=== PATIENT | male | born 1945 | race Caucasian/White ===

== ENCOUNTER 2019-12-24 00:38 | Inpatient (IN) | payer OTHER, BC ==
[2019-12-24] VITALS (86 sets, daily range): BP systolic 103–163; BP diastolic 52–131
[~2019-12-24] VITALS: Ht 167.6 cm; Wt 105.5 kg
[~2019-12-24 00:38] MED LIST: ALLOPURINOL 10100 M1 PO; ALLOPURINOL 30300 M2 PO; ASA5UEC PO; ATORVASTATIN CA40 MG PO; COLACE100 MG PO; COUMADIN 2 MG TA2 M1 PO; COUMADIN 3 MG TA3 MG PO; COUMADIN 5 MG TA5 M1 PO; EFFIENT10 MG PO; ENOXAPARIN100 MG/1 M SQ; ENOXAPARIN30 MG/0.3 SQ; HYDROCODON-ACE1 EAC4 PO; INDOMETHACIN 5050 M1 PO; INDOMETHACIN 5050 MG PO; IPRATROPIUM BROMIDE INH; LASIX 40 MG TAB40 M1 PO; LEVAQUIN 250 M250 MG PO; LISINOPRIL40 MG PO; LOPRESSOR50 PO; NEURONTIN600 MG PO; OMEPRAZOLE40 MG PO; PAXIL10 MG; PREDNISONE 5 MG5 M1; PULMICORT FLE180 MCG INH; TOPROL XL25 MG PO
[2019-12-24 02:59] LABS: BE(vivo) -3.7 mmol/L (-2 to +3); HCO3 22.2 mmol/L (22.0-26.0); PCO2 43.3 mmHg (35.0-45.0); PO2 69.2 mmHg (80.0-100.0); sO2 92.7 % (92.0-98.0)
[2019-12-24 03:02] LABS: pH 7.327 (7.360-7.450)
[2019-12-24 03:54] LABS: HEMATOCRIT 39.3 % (42.0-52.0); HEMOGLOBIN 12.7 gm/dL (14.0-18.0); MCH 33.1 pg (26.0-34.0); MCHC 32.3 g/dL (28.0-37.0); MCV 102.4 fL (80.0-100.0); RBC 3.84 mil/uL (4.50-6.00); RDW 14.7 % (10.5-14.5); WBC 12.6 thou/uL (4.0-11.0)
[2019-12-24] MEDS ORDERED: FUROSEMIDE 40 M40 MG PO (04:14)
[2019-12-24 04:21] LABS: CHOLESTEROL 122 mg/dL (<200); HDL CHOLESTEROL 47 mg/dL (>40); LDL CHOLESTEROL 66 mg/dL (<100); TC:HDL 2.6 Ratio (Not establshd); TRIGLYCERIDE 47 mg/dL (<150); VLDL 9 mg/dL (<40)
[2019-12-24 04:23] LABS: CALCIUM 8.5 mg/dL (8.5-10.1); CREATININE 2.4 mg/dL (0.7-1.3); MAGNESIUM 1.9 mg/dL (1.8-2.4); POTASSIUM 4.7 mmol/L (3.5-5.1); TROPONIN-I 0.19 ng/mL (<0.06)
[2019-12-24 04:24] LABS: SERUM ASSESSMENT Clear
--- NOTE | 2019-12-24 05:19 | NUR ---
Pt arrived to the ICU in room 241 at 0330. This RN assumed care. Pt came in on 15 L nonrebreather, and tachypneic. Pt is hard of hearing and hard to communicate with. Patient currently has vancomycin and normal saline running. Erika DISABILITY ATTORNEY at bedside to assess patient. This RN also called to consult Dr. Sims and . I talked with Dr. Pretty who was insulation mechanic and no new orders received. Dr. Sims to round on patient tomorrow and gave orders for Bipap, which patient did not tolerate. Pt complaining of pain "in his stump" and needing water to quench thirst. Pt maintaining saturation and normal respiratory rate.
--- NOTE | 2019-12-24 11:54 | EKG ---
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 ABARCA : 1945 Requested By: Neno Pretty Order Number: [id number] MD: Neno Pretty Measurements Intervals [place] Rate: 82 P: 70 NJ: 175 QRS: -43 QRSD: 118 T: 104 QT: 358 QTc: 418 Interpretive Statements Sinus rhythm Leftward axis Nonspecific ST segment abnormality Compared to ECG 02/28/2015 08:21:34 No significant change was found Electronically Signed On 12-24-2019 11:53:47 CDT by Neno Pretty [email or web address] <ELECTRONICALLY SIGNED> By: Neno Pretty MD, [facility] 12/24/19 [id number] Neno Pretty MD, [facility] /EPI
--- NOTE | 2019-12-24 13:31 | 2DMMODE ---
[facility] [address] [place] [address] 2 D/M-MODE ECHOCARDIOGRAM Name: LEON WILL Room #: 241-P ADM IN M.R.#: [id number] Admission: 12/24/19 Attend Phys: Rosario Tyler MD Discharge: Date of : 41 Report #: [id number] THIS REPORT FOR: cc: Guillermo De Luna,Guillermo Puente,Neno More MD [facility] ~ APPROVED REPORT Study performed: 12/24/2019 09:50:37 EXAM: Comprehensive 2D, Doppler, and color-flow Echocardiogram Patient Location: Bedside Room #: 241 Status: on-call BSA: 2.02 HR: 84 bpm BP: 136/90 mmHg Rhythm: NSR Other Information Study Quality: Adequate Risk Factors: Cardiac Risk Factors: HTN, Hyperlipidemia, Smoking Indications COPD Sepsis Dyspnea CAD Elevated Troponin Chest Pain 2D Dimensions IVSd: 11.62 (7-11mm) LVOT Diam: 25.00 (18-24mm) LVDd: 40.61 mm PWd: 11.81 (7-11mm) Ascending Ao: 41.35 (22-36mm) LVDs: 30.70 (25-40mm) Aortic Root: 37.87 mm LV Single Plane 4CH: 51.62 % LV Single Plane 2CH: 51.50 % Biplane EF: 54.2 % [facility] [place] [place] [address] 2 D/M-MODE ECHOCARDIOGRAM Name: LEON WILL Room #: 241-P ADM IN M.R.#: [id number] Admission: 12/24/19 Attend Phys: Avery Bruno Discharge: Date of : 41 Report #: [id number] Volumes Left Atrial Volume (Systole) Single Plane 4CH: 83.54 mL Single Plane 2CH: 90.23 mL LA ESV Index: 53.00 mL/m2 Aortic Valve AoV Peak Jj.: 1.41 m/s AO Peak Gr.: 7.95 mmHg LVOT Max P.64 mmHg LVOT Max V: 1.08 m/s WINNIE Vmax: 3.79 cm2 Mitral Valve E/A Ratio: 0.7 MV Decel. Time: 192.72 ms MV E Max Jj.: 0.80 m/s MV A Jj.: 1.11 m/s MV PHT: 55.89 ms IVRT: 83.04 ms Pulmonary Valve PV Peak Jj.: 0.99 m/s PV Peak Gr.: 3.89 mmHg Tricuspid Valve TR Peak Jj.: 4.05 m/s RAP Estimate: 7.00 mmHg TR Peak Gr.: 65.72 mmHg PA Pressure: 73.00 mmHg Left Ventricle The left ventricle is normal size. There is normal LV segmental wall motion. Mild concentric left ventricular hypertrophy. The left ventricular systolic function is normal. The left ventricular ejection fraction is within the normal range. LVEF is 55-60%. Mild diastolic dysfunction is present (impaired relaxation pattern). Right Ventricle Right ventricle is dilated. Right ventricle is hypokinetic. Atria Left atrium is mildly dilated. Right atrium is severely dilated. Aortic Valve The aortic valve is normal in structure. No aortic regurgitation is present. There is no aortic valvular stenosis. [facility] [place] [place] [address] 2 D/M-MODE ECHOCARDIOGRAM Name: NIURKA WILLMaria Del Carmen Lyles Room #: 241-P [facility] IN ..#: [id number] Admission: 12/24/19 Attend Phys: Avery Bruno Discharge: Date of : 41 Report #: [id number] Mitral Valve Mild mitral annular calcification Trace mitral regurgitation. No evidence of mitral valve stenosis. Tricuspid Valve The tricuspid valve is normal in structure. Moderate tricuspid regurgitation. Pulmonary artery pressure is 70 mmHg. Pulmonic Valve The pulmonary valve is normal in structure. Trace pulmonic regurgitation. Great Vessels The aortic root is normal in size. The ascending aorta is mildly dilated (4.1cm) IVC is normal in size and collapses >50% with inspiration. Pericardium There is no pericardial effusion. <Conclusion> The left ventricular systolic function is normal. There is normal LV segmental wall motion. LVEF is 55-60%. Mild diastolic dysfunction Right ventricle and atrium are dilated. RV is hypokinetic. The aortic valve is normal in structure. No aortic regurgitation or stenosis Mild mitral annular calcification. Trace mitral insufficiency Moderate tricuspid regurgitation. Pulmonary artery pressure of 70 mmHg. The ascending aorta is mildly dilated (4.1cm) There is no pericardial effusion. <ELECTRONICALLY SIGNED> By: Neno Pretty MD, [facility] 12/24/19 133 30 30 Neno Pretty MD, FACC /INF
[2019-12-24 14:14] LABS: HEMATOCRIT 39.6 % (42.0-52.0); HEMOGLOBIN 12.6 gm/dL (14.0-18.0); MCH 32.9 pg (26.0-34.0); MCHC 31.7 g/dL (28.0-37.0); MCV 103.7 fL (80.0-100.0); RBC 3.82 mil/uL (4.50-6.00); RDW 15.1 % (10.5-14.5); WBC 11.6 thou/uL (4.0-11.0)
[2019-12-24 14:27] LABS: PROTIME 10.7 Seconds (9.3-11.4)
--- NOTE | 2019-12-24 17:31 | NUR ---
ASSESSMENTS AND INTERVENTIONS DOCCUMENTED. PATIENT ALERT BUT [place]. PATIENT FOLLOWING COMMANDS BUT STILL DROWSY. CALLING, UPDATE GIVEN ABOUT PATIENT STATUS. DR. GRUBBS ROUNDING, PATIENT STARTED ON RESP THERAPY TREATMENTS. ORTHO CALLED, DR. GRUBBS WANTING TO INTIATE HEPARIN GTT. ORTHO STATES PATIENT IS NOT A SURGICAL CANDIDATE AT THIS TIME. RN TO INTIATE HEPARIN GTT AFTER LABS ARE DRAWN.
[2019-12-25] VITALS (48 sets, daily range): BP systolic 106–146; BP diastolic 53–97
[2019-12-25 01:05] LABS: GLYCOHEMOGLOBIN (HGB A1C) 5.1 % (4.8-5.6)
[2019-12-25 01:10] LABS: HEMATOCRIT 36.5 % (42.0-52.0); HEMOGLOBIN 11.7 gm/dL (14.0-18.0); MCH 33.1 pg (26.0-34.0); MCV 103.4 fL (80.0-100.0); RBC 3.53 mil/uL (4.50-6.00); RDW 15.3 % (10.5-14.5)
[2019-12-25 01:15] LABS: CALCIUM 8.6 mg/dL (8.5-10.1); POTASSIUM 4.7 mmol/L (3.5-5.1)
--- NOTE | 2019-12-25 07:51 | NUR ---
REPORT RECEIVED. PATIENT IS A/O. DENIES SOA, N/V. DENIES PAIN. AFEBRIL. VSS. ON HEPARIN GTT. TITRATED ORDERED. COLVIN IN PLACE WITH GOOD U/O. REMAINS ON OPTIFLOW WITH GOOD SAT. FAMILY UDATED. DENIES NEEDS. REPORT GIVEN TO ONCOMING RN
--- NOTE | 2019-12-25 12:04 | NUR ---
DR. BUSCH ROUNDED ON PATIENT, NO PLAN FOR ORTHO SURGERY AT THIS TIME. APPT RE-DRAW DONE AT 0808, THERAPEUTIC, NO CHANGE MADE TO GTT RATE. RE-DRAW AT 1400. PT ALERT AND ORIENTED. VSS. TOLERATING DIET WELL. VOICES NO NEEDS OR CONCERNS AT THIS TIME. DENIES PAIN UNLESS MOVED IN BED.
[2019-12-26] VITALS (35 sets, daily range): BP systolic 106–184; BP diastolic 49–106
--- NOTE | 2019-12-26 03:12 | NUR ---
ASSUMED PT CARE AT 1900. VSS. PT A&OX4. ON HEPARIN DRIP. PT GETS OCASSIONALLY BRADYCARDIC LOWEST HR BEING 32 WITH SLEEP HOWEVER PT REMAINS ASYMPTOMATIC. PT IS STABLE. NO COMPLAINTS. OTHER ASSESSMENTS ARE CHARTED, WILL CONTINUE TO MONITOR
[2019-12-26 05:05] LABS: HEMATOCRIT 32.2 % (42.0-52.0); HEMOGLOBIN 10.3 gm/dL (14.0-18.0); MCH 33.1 pg (26.0-34.0); MCV 103.3 fL (80.0-100.0); RBC 3.12 mil/uL (4.50-6.00); RDW 14.8 % (10.5-14.5); WBC 7.6 thou/uL (4.0-11.0)
[2019-12-26 05:06] LABS: CALCIUM 8.5 mg/dL (8.5-10.1); CREATININE 1.9 mg/dL (0.7-1.3)
--- NOTE | 2019-12-26 11:33 | NUR ---
PT HAS ASYMPTOMATIC BRADYCARDIA, CARDIOLOGY WAS CONSULTED AND EVALUATED THE PT. HOSPITALIST ORDERED ATROPINE AND CARDIOLOGY GAVE VERBAL ORDER NOT TO GIVE ATROPINE. NO ORDERS GIVEN BY CARDIOLOGY.
[2019-12-27] VITALS (22 sets, daily range): BP systolic 120–208; BP diastolic 53–100
[2019-12-27 04:07] LABS: BE(vivo) -5.5 mmol/L (-2 to +3); HCO3 20.2 mmol/L (22.0-26.0); PCO2 40.2 mmHg (35.0-45.0); PO2 71.5 mmHg (80.0-100.0); sO2 93.2 % (92.0-98.0)
[2019-12-27 04:08] LABS: pH 7.319 (7.360-7.450)
[2019-12-27 04:46] LABS: ABSOLUTE NEUTROPHILS 4.2 thou/uL (1.4-8.2); BASOPHILS 0.1 % (0.0-2.0); HEMATOCRIT 32.3 % (42.0-52.0); HEMOGLOBIN 10.4 gm/dL (14.0-18.0); LYMPHOCYTES 7.8 % (24.0-44.0); MCH 32.8 pg (26.0-34.0); MCHC 32.2 g/dL (28.0-37.0); MCV 101.9 fL (80.0-100.0); MONOCYTES 2.8 % (1.0-8.0); PLATELET COUNT 111 thou/uL (150-400); POLYS 89.3 % (36.0-66.0); RBC 3.17 mil/uL (4.50-6.00); RDW 14.3 % (10.5-14.5)
[2019-12-27 04:59] LABS: ALBUMIN 2.2 g/dL (3.4-5.0); CALCIUM 8.5 mg/dL (8.5-10.1); CREATININE 2.1 mg/dL (0.7-1.3); POTASSIUM 4.5 mmol/L (3.5-5.1); TOTAL BILIRUBIN 0.3 mg/dL (0.2-1.0)
--- NOTE | 2019-12-27 11:00 | NUR ---
ASSESSMENT: CM REVIEWED CHART. PT CAME TO [facility] FROM [facility] DUE TO CHEST PAIN AND INCREASING NEED OF OXYGEN. PT HAS LEFT LOWER LOBE ATELECTASIS WITH MUCOUS PLUGGING AND IS ON IV ANBX AND IV STEROIDS. PT ALSO FELL 3 DAYS PRIOR TO HOSPITALIZATION AND HAS R FEMORAL NECK FX. CM SPOKE WITH PTS GILMER. PT LIVES IN A HOME WITH HER IN [place], [place]. PT HAS HX OF RIGHT ABOVE THE KNEE AMPUTATION AND USES AN ELECTRIC SCOOTER. PT ALSO HAS A HOSPITAL BED AT HOME. REPORTS SHE GIVES HIM BED BATHS AND ASSIST WITH ADLS. SHE REPORTS THEY DO NOT HAVE HH AND PATIENTS HAS NEVER BEEN IN SERVICE WITH HOSPICE. SHE REPORTS SHE HAS BEEN HELPING CARE FOR HIM AT HOME DUE EVER SINCE HE FELL IT HAS BEEN HARD DUE TO HIS HIP PAIN. PT IS CURRENTLY ON HIGH FLOW OXYGEN. ORTHO IS FOLLOWING PATIENT AND NON OPERATIVE PLANS OF NOW. CM DISCUSSED THAT PATIENT WILL LIKELY NEED POST ACUTE CARE. SHE REPORTS SHE WANTS TO SEE IF PATIENT CAN GO SOMEWHERE IN [place], [place] BUT REPORTS HER WILL LIKELY NO AGREE. PT HAS BEEN RULE OUT FOR COVID AND IS NEGATIVE. WANTED CM TO REACH OUT TO [facility]. CM SPOKE WITH [facility] IN ADMISSIONS AND SHE REPORTS THEY HAVE LONG TERM THERE AND REFERRAL CAN BE SENT. CM FAXED REFERRAL TO THEIR FAX [phone]. CM WILL CONTINUE TO FOLLOW TO ASSIST NEEDED.
--- NOTE | 2019-12-27 14:54 | NUR ---
ASSUMED CARE OF PT AT 0700. PT IN BED WITH OPTI-FLOW IN PLACE. O2 HAS BEEN TITRATED BY RT TODAY. 50L @ 40% FIO2 PRESENTLY. PT CONTINUES TO HAVE ASYMPTOMATIC BRADYCARDIA, INTO THE UPPER 20'S. PT ON HEPARIN GTT, BOLUS GIVEN ALONG WITH INCREASE IN BASAL RATE PER [facility] PROTOCAL. PT WORKED WITH PT/OT TODAY. TOLERATED WELL. PT WOULD LIKE TO GO HOME, DOES NOT UNDERSTAND WHY HE IS STILL HERE, PT WAS UPDATED AND EDUCATED ON CONDITION AND POC. PT PROGRESSING TOWARDS POC. AFEBRILE. NO BM. ADEQUATE UOP. PT PROGRESSING TOWARDS POC.
[2019-12-28] VITALS (25 sets, daily range): BP systolic 122–163; BP diastolic 60–108
--- NOTE | 2019-12-28 01:50 | NUR ---
PATIENT REMAINS A/O. DENIES SOB, N/V. C/O RIGH HIP PAIN. MEDS GIVEN ORDERED. ON OPTIFLOW WITH SATS >90. COLVIN WITH GOOD U/O. REPOSITIONED Q2H. AFEBRILE. VSS. WILL KEEP MONITORING
--- NOTE | 2019-12-28 06:43 | NUR ---
REMAINS ASYMPTOMATIC BRADYCARDIC. REFUSES CARES. VSS. AFEBRILE. COLVIN WITH GOOD U/O. NO BM THIS TOD. WILL REPORT TO ONCOMING RN
--- NOTE | 2019-12-28 18:30 | NUR ---
RN has assumed pt's care at 0700am, pt is A&OX3, PT IS CONTINUING O2 40L/MIN/NC , O2 40%, IV ABX AND PAIN MANAGEMENT, PT'S VS AND O2SAT ARE STABLE, PT DENIES SON , CHEST PAIN AND DIZZINESS .
[2019-12-29] VITALS (12 sets, daily range): BP systolic 106–136; BP diastolic 55–106
--- NOTE | 2019-12-29 04:25 | NUR ---
ASSESSMENT: PT REMAIN ALERT AND ORIENT TIMES THREE, FORGETFUL AT TIMES. C/O RIGHT STUMP PAIN, MORPHINE AND GABAPENTIN PROVIDES ADEQUATE RELIEF. VSS, AFEBRILE. SATS 93-95% TOLERATING PO INTAKE. PUREED/NECTAR THICK LIQ. SB ASYSMPTOMATIC. COLVIN PATENT WITH ADEQUATE YELLOW URINE OUTPUT. NO BM THIS SHIFT. 40 LITERS AND 45% FIO2 PER OPTIFLO. SLOW PROGRESS TOWARDS DC GOALS. WILL CONTINUE TO MONITOR.
--- NOTE | 2019-12-29 09:21 | NUR ---
ASSUMED CARE AT 0700, ASSESSMENT AND VITAL SIGNS COMPLETED PER ICU PROTOCOL. SPEECH SAW PT THIS MORNING, ADVANCED DIET. RN WILL CONTINUE TO MONITOR.
[2019-12-29 09:37] LABS: HEMATOCRIT 36.1 % (42.0-52.0); MCH 33.4 pg (26.0-34.0); MCHC 33.2 g/dL (28.0-37.0); MCV 100.4 fL (80.0-100.0); PLATELET COUNT 155 thou/uL (150-400); RBC 3.59 mil/uL (4.50-6.00); RDW 14.5 % (10.5-14.5); WBC 6.5 thou/uL (4.0-11.0)
[2019-12-29 10:02] LABS: ALBUMIN 2.3 g/dL (3.4-5.0); CALCIUM 8.1 mg/dL (8.5-10.1); CREATININE 2.1 mg/dL (0.7-1.3); MAGNESIUM 2.3 mg/dL (1.8-2.4); TOTAL BILIRUBIN 0.3 mg/dL (0.2-1.0)
[2019-12-29 10:59] LABS: PLATELET ESTIMATE NORMAL
[2019-12-30] VITALS (17 sets, daily range): BP systolic 103–137; BP diastolic 55–87
--- NOTE | 2019-12-30 04:24 | NUR ---
PT MAKING PROGRESS TOWARDS GOALS. PT ON OPTIFLO CANNULA WIT O2 AT 40% AND FIO2 IN 40% RANGE. PT HAS REGULAR AND NON-LABORED RESPIRATIONS WHILE LYING IN BED. LUNGS DIMINISHED THROUGHOUT. PT DENIES COUGH BUT HAS BEEN OBSERVED WITH MILD OCCASIONAL COUGH WITH NO REPORTED SPUTUM PRODUCTION.
[2019-12-30 04:50] LABS: HEMATOCRIT 34.8 % (42.0-52.0); HEMOGLOBIN 11.4 gm/dL (14.0-18.0); MCH 32.9 pg (26.0-34.0); MCHC 32.7 g/dL (28.0-37.0); MCV 100.7 fL (80.0-100.0); PLATELET COUNT 150 thou/uL (150-400); RBC 3.46 mil/uL (4.50-6.00); RDW 14.1 % (10.5-14.5); WBC 8.1 thou/uL (4.0-11.0)
[2019-12-30 04:51] LABS: BE(vivo) -6.7 mmol/L (-2 to +3); PCO2 33.2 mmHg (35.0-45.0); PO2 67.2 mmHg (80.0-100.0); pH 7.351 (7.360-7.450); sO2 92.8 % (92.0-98.0)
[2019-12-30 05:09] LABS: ALBUMIN 2.2 g/dL (3.4-5.0); CALCIUM 7.7 mg/dL (8.5-10.1); CREATININE 1.8 mg/dL (0.7-1.3); POTASSIUM 4.2 mmol/L (3.5-5.1); TOTAL BILIRUBIN 0.3 mg/dL (0.2-1.0); TOTAL PROTEIN 5.3 g/dL (6.4-8.2)
[2019-12-30 06:24] LABS: ABSOLUTE NEUTROPHILS 7.3 thou/uL (1.4-8.2)
[2019-12-30 06:25] LABS: ANISOCYTOSIS 1+; PLATELET ESTIMATE NORMAL; POIKILOCYTOSIS 1+; POLYCHROMASIA 1+
--- NOTE | 2019-12-30 14:32 | NUR ---
NOTIFIED ABRAHAN WITH CASE MANAGEMENT REGARDING SHARRITAS REQUEST TO HAVE MEDICAL RECORDS SENT TO PCP , SHE SAID SHE WOULD TAKE CARE OF IT.
--- NOTE | 2019-12-30 15:17 | NUR ---
PT A/OX4, VITALS STABLE ON 4LNC, PT REFUSES TO TURN MOST OF THE TIME, EDUCATED PT ON PRESSURE ULCER PREVENTION. UPDATED GILMER ON PROGRESS AND POSSIBLE TRANSFER TO CCU. PT REFUSES TO WORK WITH PHYSICAL THERAPY UNTIL HE GETS A "NEW BED".
--- NOTE | 2019-12-30 15:25 | NUR ---
THIS AM NURSE INDICATED THAT PT IS OFF OPTIFLOW O2 AND IS NOW ON 4L. ST WAS TO EVAL PT. HIS GILMER WAS COMING TO VISIT. PT REFUSED PT AND OT THIS DAY HE IS DISATISFIED WITH THE BEDS IN THE ICU. [facility] SKILLED FACILITY NEAR THEIR HOME INDICATED THEY WOULD BE ABLE TO ACCEPT PT FOR SHORT TERM REHAB SERVIES ONCE MEDICALLY STABLE IT PT AND SPOUSE ARE INTERESTED. CARE TEAM INDICATED THAT PT LIKELY WOULDN'T BE MEDICALLY STABLE TO DC OVER THE WEEKEND. CM ATTEMPTED PT TO PT'S SPOUSE THIS AFTERNOON AND IT INDICATED SHE WASN'T ACCEPTING CALLS AT THIS TIME. CM TO TOUGH BASE WITH PT AND SPOUSE AND SEND CLINICAL UPDATE TO FACILITY IF DESIRED. CM TO FOLLOW INDICATED WITH DC PLANNING.
[2019-12-31 04:40] VITALS: BP 115/56
--- NOTE | 2019-12-31 04:51 | NUR ---
ASSESSMENT: PT REMAIN ALERT AND ORIENT TIMES THREE. TOLERATING 4 LITERS PER NC. PT NOW OFF OF OPTIFLOW. C/O RIGHT STUMP PAIN, MS GIVEN WITH GOOD RESULTS. COLVIN PATENT WITH CLEAR YELLOW OUTPUT. REFUSES MOST TURNS, IS ABLE TO TURN SELF FROM TIME TO TIME. SLOW PROGRESS TOWARDS DC GOALS, WILL CONTINUE TO MONITOR.
[2019-12-31 12:20] VITALS: BP 109/60
--- NOTE | 2019-12-31 16:54 | NUR ---
RECEIVED PT'S CARE AROUND 0730; PT. ON BED; ALERT; DURING AM ASSESSMENT PT. ALERT TO TIME, NAME & PART SITUATION; FORGETFUL; AM MEDICATIONS GIVEN; SB ON THE MONITOR; D/C DIANE PER ORDER AT 1545; EDUCATED ABOUT USING URINAL; REFUSED TO WORK WITH PT.; ST. HE IS GOING HOME; PER CHART PT. HAS ALLERGY TO OXYCODONE; PER HOME MEDS PT. TAKES HYDROCONE; CALLED TO COMFIRM; PER PT. TAKES HYDROCONE; UPDATE ABOUT PT'S POC & UNCOOPERATIVE TO WORK WITH PT.; PER PT. IS ON PAIN & IT IS THE REASON BEHIND WHY PT. REFUSED PT; PT. RESTING WITH EYES CLOSED WHEN ROUNDING; NOTIFIED; SB ON THE MONITOR; NO C/O DIZZINESS; ASSESSMENT CHARGED; FOLLOWING POC; WILL PASS ON REPORT;
[2019-12-31 17:20] VITALS: BP 120/45
--- NOTE | 2020-01-01 08:12 | NUR ---
PROGRESS PT PLEASANT AND COOPERATIVE VOIDING PER URINAL SKIN C/D/I LUNGS DIMINISHED WITH OCCASIONAL COUGH NO SPUTUM BROUGHT UP TOOK MORPHINE X 1 FOR BACK PAIN WITH EFFECT TELE INTACTCONTINUE POC.
[2020-01-01 08:30] VITALS: BP 118/62
[2020-01-01 12:35] VITALS: BP 138/68
[2020-01-01 17:40] VITALS: BP 134/57
[2020-01-01 20:22] VITALS: BP 136/57
[2020-01-02] VITALS (9 sets, daily range): BP systolic 118–127; BP diastolic 56–69
--- NOTE | 2020-01-02 03:57 | NUR ---
asssumed pt care at the change of shift, pt is awake, alert and oriented with forgetfulness, sb on the monitor, assessments as charted, morphine given x2 for right hip pain and neck pain with partial relief, remains on o2 via nasal canula, o2sats stable; vss; bs stable, refused turns; medications given as per jun, no acute distress noted, will continue to monitor
[2020-01-02 05:19] LABS: HEMATOCRIT 33.7 % (42.0-52.0); HEMOGLOBIN 11.2 gm/dL (14.0-18.0); MCH 32.9 pg (26.0-34.0); MCHC 33.2 g/dL (28.0-37.0); MCV 99.3 fL (80.0-100.0); RBC 3.39 mil/uL (4.50-6.00); RDW 14.8 % (10.5-14.5); WBC 9.8 thou/uL (4.0-11.0)
[2020-01-02 05:37] LABS: CALCIUM 7.3 mg/dL (8.5-10.1); CREATININE 2.3 mg/dL (0.7-1.3); MAGNESIUM 2.2 mg/dL (1.8-2.4)
--- NOTE | 2020-01-02 06:46 | NUR ---
pt remained stable, refused turns and also refused to be cleaned, states its painful, yelled on attempt, will pass on report to day nurse
--- NOTE | 2020-01-02 15:44 | NUR ---
FAXED REFERRAL TO [facility] SPOKE WITH INTAKE AND THEY CAN ACCEPT AT DISCHARGE. DP TO FOLLOW
--- NOTE | 2020-01-02 17:03 | NUR ---
Met with at bedside, patient and Dr Almaguer. Patient resides at home with . He has oxygen at home but cannot recall agency. Patients to dc home and wants to dc home today. ALerted can inquire into skilled at [facility]. Patient and do not want this they want to dc home. reports home health care and sapna lift is all they need. They have other needed equiptment at home. Referral to [facility] and [facility] accept[facility] who reports their [place] office can assist in area. Will need prescription for sapna lift.
--- NOTE | 2020-01-02 18:21 | NUR ---
PT CARE ASSUMED AT 0700. ASSESSMENTS CHARTED. MEDICATION CHARTED. RT FEMORAL NECK FRACTURE. RT AKA. PT TAKES MORPHINE AND HYDROCODONE FOR PAIN. PT HAS BEEN REFUSING PT/OT; DID WORK WITH OT TODAY AT 'S URGING. O2 4LPM NC. SB. AO X 3.
[2020-01-03 04:45] VITALS: BP 126/54
--- NOTE | 2020-01-03 04:47 | NUR ---
pt care assumed at the [facility], alert oriented, sb on the monitor, assesments as charted, vss, c/o pain on the right hip, pain meds given as per mar, denies having concerns, will continue to monitor
[2020-01-03 07:05] VITALS: BP 132/70
[2020-01-03 08:15] VITALS: BP 132/70
[2020-01-03] MEDS ORDERED: PREDNISONE 10 M10 MG PO (10:20)
[2020-01-03 12:00] VITALS: BP 126/61
[2020-01-03 12:15] VITALS: BP 126/61
[2020-01-03 15:24] VITALS: BP 124/64
--- NOTE | 2020-01-03 15:57 | NUR ---
PT CARE ASSUMED AT 0700. ASSESSMENTS CHARTED. MEDICATION CHARTED. LFA IV DISLODGED; RW IV PLACED AT 1000. PT TOOK HYDROCODONE FOR PAIN. PT TO BE DISCHARGED TO HOME VIA AMBULANCE. TELEMETRY D/C'D. RW IV D/C'D. PAPERWORK EXPLAINED/SIGNED. PRESCRIPTION FOR PREDNISONE GIVEN TO PT; IS AWARE.
--- NOTE | 2020-01-03 15:58 | NUR ---
Patient to dc home today with [facility] care. DC conference planner arranged. reports they have oxygen at home via [facility]. All they need is sapna lift. Called 4 DME agencies and [facility] in [place] able to deliver sapna in am. [place] agreeable. Arranged [facility] for home, updated patient and . no further needs
--- NOTE | 2020-01-03 16:55 | NUR ---
PT DISCHARGING TODAY TO HOME WITH [facility] FAXED DC ORDERS/SUMMARY RECEIVED CONFIRMATION THEY WILL NOTIFY PT TO SET UP VISITS. ALSO PT NEEDING TRANSPORT BY AMBULANCE [facility]
== END 2020-01-03 16:30 | disposition home health service (06) | DRG 871 ==
LOC: ICU 00:38 → 2N 12-30 18:13
PROVIDERS: Internal Medicine; Internal Medicine Pulmonary Disease; Nurse Practitioner Family; Pediatrics; ADMIT Hospitalist; ATTEND Hospitalist
DX: A41.9 Sepsis, unspecified organism (principal); S72.001A Fracture of unspecified part of neck of right femur, initial encounter for closed fracture; J69.0 Pneumonitis due to inhalation of food and vomit; J96.21 Acute and chronic respiratory failure with hypoxia; J15.6 Pneumonia due to other Gram-negative bacteria; I21.A1 Myocardial infarction type 2; N17.9 Acute kidney failure, unspecified; N18.4 Chronic kidney disease, stage 4 (severe); J98.11 Atelectasis; I50.32 Chronic diastolic (congestive) heart failure; I13.0 Hypertensive heart and chronic kidney disease with heart failure and stage 1 through stage 4 chronic kidney disease, or unspecified chronic kidney disease; J44.0 Chronic obstructive pulmonary disease with (acute) lower respiratory infection; J44.1 Chronic obstructive pulmonary disease with (acute) exacerbation; I25.10 Atherosclerotic heart disease of native coronary artery without angina pectoris; K21.9 Gastro-esophageal reflux disease without esophagitis; M19.90 Unspecified osteoarthritis, unspecified site; I73.9 Peripheral vascular disease, unspecified; F17.200 Nicotine dependence, unspecified, uncomplicated; E78.5 Hyperlipidemia, unspecified; I27.20 Pulmonary hypertension, unspecified; D69.6 Thrombocytopenia, unspecified; L30.9 Dermatitis, unspecified; Z89.611 Acquired absence of right leg above knee; Z95.5 Presence of coronary angioplasty implant and graft; Z85.528 Personal history of other malignant neoplasm of kidney; Z90.5 Acquired absence of kidney; Z88.5 Allergy status to narcotic agent; Z88.0 Allergy status to penicillin; Z91.018 Allergy to other foods; Z91.048 Other nonmedicinal substance allergy status; Z79.899 Other long term (current) drug therapy; Z79.82 Long term (current) use of aspirin; Z68.37 Body mass index [BMI] 37.0-37.9, adult; W18.39XA Other fall on same level, initial encounter; Y93.89 Activity, other specified; Y92.89 Other specified places as the place of occurrence of the external cause; Y99.8 Other external cause status
CPT/HCPCS: 10078; 10081